=== PATIENT | female | born 1950 | race Caucasian/White ===

== ENCOUNTER 2019-03-18 13:58 | Emergency (ER) | payer MEDICARE ==
[2019-03-18] MEDS ORDERED: Clindamycin/D5W 600 mg/50 ml Premix Bag ONE (15:16)
[2019-03-18 15:49] LABS: Mean Corpuscular HGB CONC 34.2 g/dL (32.0-36.0); Mean Platelet Volume 6.8 fL (7.4-10.4); Platelet Count 334 thou/uL (130-400); Red Blood Cell (RBC) Count 3.89 mill/uL (4.20-5.40); White Blood Cell (WBC) Count 10.6 thou/uL (4.8-10.8)
--- NOTE | 2019-03-18 15:54 | RAD ---
EXAM: Right tibia-fibula: 2 views INDICATIONS: Right lower extremity pain COMPARISON: None. FINDINGS: No evidence of fracture. No osseous abnormality. IMPRESSION: No acute finding
[2019-03-18 15:56] LABS: #Eosinphils 0.2 thou/uL (0.0-0.7); #Lymphocytes 2.5 thou/uL (1.20-3.40); #Monocytes 0.6 thou/uL (0.11-0.59); #Neutrophils 7.3 thou/uL (1.40-6.50); %Basophils 0.4 % (0.0-1.0); %Eosinophils 1.9 % (0.0-10.0); %Lymphocytes 23.4 % (21.0-51.0); %Monocytes 5.5 % (0.0-10.0); %Neutrophils 68.8 % (42.0-75.0); MDiff Complete? YES; Macrocytosis SLIGHT = 6-15 cells (100X) (0-5/hpf); Platelet Morphology Comment Appears Adequate
[2019-03-18 15:58] LABS: ALT (SGPT) 22 U/L (8-55); AST (SGOT) 18 U/L (5-34); Albumin 4.3 g/dL (3.4-4.8); Alkaline Phosphatase 95 U/L (40-110); Anion Gap 17 mmol/L (10-20); BUN (Urea Nitrogen) 5 mg/dL (9.8-20.1); Bilirubin, Total 0.2 mg/dL (0.2-1.2); Calc. Creatinine Clearance 0 mL/min (70-130); Calcium 9.3 mg/dL (7.8-10.44); Carbon Dioxide 24 mmol/L (23-31); Chloride 105 mmol/L (98-107); Estimated GFR-MDRD Greater than 90; Globulin 2.6 g/dL (2.4-3.5); Glucose 91 mg/dL (80-115); Potassium 3.8 mmol/L (3.5-5.1); Protein, Total 6.9 g/dL (6.0-8.3); Sodium 142 mmol/L (136-145)
== END 2019-03-18 16:28 | disposition home or self-care (01) ==
LOC: ERS 13:58
DX: L03.115 Cellulitis of right lower limb (principal); I10 Essential (primary) hypertension; J44.9 Chronic obstructive pulmonary disease, unspecified; Z87.891 Personal history of nicotine dependence; Z85.038 Personal history of other malignant neoplasm of large intestine; Z79.899 Other long term (current) drug therapy; Z79.51 Long term (current) use of inhaled steroids
CPT/HCPCS: 80053; 85025; 87040; 96374; J3490

== ENCOUNTER 2019-04-01 09:42 | Inpatient (IN) | payer MEDICARE ==
[2019-04-01 10:14] LABS: #Basophils 0.1 thou/uL (0.0-0.2); #Eosinphils 0.1 thou/uL (0.0-0.7); #Lymphocytes 2.1 thou/uL (1.20-3.40); #Monocytes 0.8 thou/uL (0.11-0.59); %Basophils 0.5 % (0.0-1.0); %Eosinophils 0.8 % (0.0-10.0); %Lymphocytes 16.2 % (21.0-51.0); %Neutrophils 76.5 % (42.0-75.0); Hemoglobin 15.1 g/dL (12.0-16.0); Mean Corpuscular Hemoglobin 35.5 pg (27.0-31.0); Mean Platelet Volume 7.6 fL (7.4-10.4); Platelet Count 334 thou/uL (130-400); RBC Distribution Width 13.2 % (11.5-14.5); Red Blood Cell (RBC) Count 4.26 mill/uL (4.20-5.40); White Blood Cell (WBC) Count 13.1 thou/uL (4.8-10.8)
[2019-04-01 10:33] LABS: ALT (SGPT) 31 U/L (8-55); AST (SGOT) 34 U/L (5-34); Albumin 4.6 g/dL (3.4-4.8); Alkaline Phosphatase 106 U/L (40-110); Anion Gap 14 mmol/L (10-20); BUN (Urea Nitrogen) 7 mg/dL (9.8-20.1); Bilirubin, Total 0.4 mg/dL (0.2-1.2); Calc. Creatinine Clearance 0 mL/min (70-130); Calcium 10.1 mg/dL (7.8-10.44); Carbon Dioxide 27 mmol/L (23-31); Chloride 103 mmol/L (98-107); Estimated GFR-MDRD 82; Globulin 3.3 g/dL (2.4-3.5); Glucose 130 mg/dL (80-115); Potassium 4.4 mmol/L (3.5-5.1); Protein, Total 7.9 g/dL (6.0-8.3); Sodium 140 mmol/L (136-145)
--- NOTE | 2019-04-01 10:54 | ULT ---
EXAM: Right lower extremity venous ultrasound HISTORY: Right lower extremity pain and edema COMPARISON: None TECHNIQUE: Multiplanar grayscale and color Doppler images were obtained in a right lower extremity ve nous ultrasound. Spectral analysis of the Doppler waveforms were performed. FINDINGS: The common femoral vein, profunda femoral vein, superficial femoral vein, and popliteal vei n are normal in appearance without visible thrombus. These vessels demonstrate normal compression, flow, and augmentation. The posterior tibial vein and greater saphenous vein are patent without evidence of thrombus. IMPRESSION: No evidence of DVT.
--- NOTE | 2019-04-01 11:10 | RAD ---
EXAM: 2 views of the right tibia/fibula HISTORY: Leg pain COMPARISON: 03/18/2019 FINDINGS: There is no evidence of acute fracture or dislocation. There is an abnormal appearance of t he trabecular pattern in the proximal fibular diaphysis. There is questionable periosteal thickening in this region. No soft tissue swelling is seen. No degenerative changes are seen in the k nee or ankle. IMPRESSION: Questionable osseous lesion within the proximal fibula. An MRI of this location without a nd with contrast is recommended for further evaluation.
[2019-04-01 14:04] LABS: Lactic Acid 0.8 mmol/L (0.5-2.2)
[2019-04-01] MEDS ORDERED: Acetaminophen 325 MG TAB PO PRN (14:24)
[2019-04-01] MEDS ORDERED: Ondansetron ODT 4 MG TAB PO PRN (14:24)
[2019-04-01] MEDS ORDERED: Ondansetron PF 4 MG/2 ML Vial IVP PRN (14:24)
--- NOTE | 2019-04-01 14:50 | HP ---
PRIMARY CARE PHYSICIAN: Ora Simon MD CHIEF COMPLAINT: Right leg pain. HISTORY OF PRESENT ILLNESS: Ms. Rosales is a 68-year-old female with a past medical history of colon cancer, hypertension, hyperlipidemia, and COPD, who had presented to the ED earlier today due to right lower leg cellulitis. She states that over the weekend, she had scraped her bottom right leg on her machine helper, which she states had became painful, red, and swollen. Therefore, she was seen at a local urgent care and was treated for cellulitis and started on Bactrim. She states that the cut had healed up, however, the area of redness and swelling worsened. Therefore, she was seen in this ED on 03/20/2019, she was treated with IV clindamycin and later sent home with oral clindamycin. She states that the redness continued to worsen and track up the leg. Therefore, she wanted to be re-seen today. Her white count was noted to be elevated at 13.1 and lactic acid at 2.6, she underwent a lower extremity Doppler, which was negative for DVT at this time; however, a tibia and fibula, right leg, two-view, was ordered and showed questionable osseous lesion noted at the proximal fibula and an MRI was actually recommended. Therefore, she was treated with IV fluids and IV vancomycin, and an MRI of the right lower extremity was ordered and currently pending at this time. REVIEW OF SYSTEMS: All other systems reviewed and found to be negative unless mentioned in the HPI. PAST MEDICAL HISTORY: Hypertension, hyperlipidemia, previous history of colon cancer, and chronic obstructive pulmonary disease. PAST SURGICAL HISTORY: Abdominal surgery for colon cancer. PSYCHIATRIC HISTORY: None. SOCIAL HISTORY: The patient drinks roughly 1 to 2 drinks daily, and she states she is a former tobacco smoker, and she denies any other illicit drug use. KNOWN ALLERGIES: No known drug allergies. CURRENT HOME MEDICATIONS: 1. Breo 25 mcg inhalation once daily. 2. ProAir HFA inhaler one inhalation as needed for shortness of breath. 3. Levothyroxine 100 mcg oral daily. 4. Amlodipine 10 mg oral daily. 5. Simvastatin 20 mg oral once daily. 6. Montelukast 10 mg oral once daily. PHYSICAL EXAMINATION: VITAL SIGNS: BP 128/80, pulse 80, respirations 18, temp 99.2, and O2 saturation 99% on room air. GENERAL: The patient is awake, alert, and oriented x3. She is currently lying comfortably in bed and in no acute distress. HEENT: Atraumatic and normocephalic. Pupils are round and reactive to light. Extraocular muscles intact. Moist mucous membranes noted. NECK: Soft and supple. Trachea midline. CARDIOVASCULAR: Positive S1 and S2. Regular rate and rhythm. No murmur auscultated. RESPIRATORY: Clear to auscultation bilaterally. No wheezes, rales, or rhonchi. ABDOMEN: Soft and nontender. Bowel sounds present. MUSCULOSKELETAL: Moves all extremities equal. Pedal and radial pulses 2+ bilaterally. The patient does have tenderness, redness, and erythema along with a small area of induration noted on the right lower extremity, which is mildly tender to palpation with no fluctuation noted. NEUROLOGIC: Cranial nerves 2 through 12 grossly intact. No focal deficits noted. Speech intact and normal. Gait not assessed. SKIN: Warm, dry, and intact. Skin changes noted above. PSYCHIATRIC: Good mood and affect. LABORATORY DATA: WBC 13.1, RBC 4.26, hemoglobin 15.1, and platelets 334. Sodium 140, potassium 4.4, anion gap 14, BUN 7, creatinine 0.71, estimated GFR 82, glucose 130. Lactic acid 2.6, improved to 0.8. DIAGNOSTIC IMAGING: Ultrasound venous Doppler was negative for DVT. Tibia-fibula, right, two-view x-ray, revealed questionable osseous lesion within the proximal fibula and an MRI of this location with and without contrast is recommended. ASSESSMENT AND PLAN: 1. Recurrent cellulitis of the right lower extremity, which she has failed outpatient therapy including Bactrim and clindamycin, blood cultures are obtained and she will be treated with IV vancomycin. There was a questionable osseous lesion at the proximal fibula and an MRI with and without contrast is ordered for further evaluation. 2. History of hypertension, currently stable at this time. Monitor blood pressure and other vital signs closely, and restart home regimen. 3. Hypothyroidism. Continue home Synthroid. 4. History of chronic obstructive pulmonary disease, currently stable at this time. Continue home regimen. 5. Hyperlipidemia. Continue home statin. 6. Deep venous thrombosis and gastrointestinal prophylaxis. 7. Code status, full code. 8. Surrogate decision maker is her , Bennett. DISPOSITION: Pending further workup, clinical findings, and patient's progress. Job ID: [id number]
--- NOTE | 2019-04-01 16:21 | MRI ---
RIGHT LOWER EXTREMITY MRI WITH AND WITHOUT IV CONTRAST: 04/01/19 HISTORY: Osseous lesion found on x-ray, injury with pain. Follow-up. There is some focal subcutaneous edema primarily laterally and posteriorly along the lower leg. There is some subtle edematous changes within the lateral aspect of the lateral gastrocnemius muscle poste rior and lateral to the proximal fibula diaphysis. This could represent some focal soft tissue contus ion or injury. There is no evidence for abnormal marrow signal within the fibula. No evidence for a b one lesion. IMPRESSION: No evidence for a fibula bone lesion. Focal subcutaneous edema and fat stranding laterally at the level of the lower leg primarily overlyin g the lateral aspect of the fibula. Small focus of intramuscular edema or contusion at the level of the proximal fibular diaphysis which could well be related to the history of recent injury or possibly represents some mild muscle strain. POS: TPC
[2019-04-01 17:39] VITALS: BMI 25.6
[2019-04-01] MEDS ORDERED: Atorvastatin Calcium 10 MG TAB PO SCH (21:00)
[2019-04-01] MEDS ORDERED: Montelukast Sodium 10 mg Tablet PO SCH (21:00)
[2019-04-02 05:49] LABS: #Basophils 0.1 thou/uL (0.0-0.2); #Eosinphils 0.1 thou/uL (0.0-0.7); #Lymphocytes 1.5 thou/uL (1.20-3.40); #Monocytes 0.6 thou/uL (0.11-0.59); #Neutrophils 6.7 thou/uL (1.40-6.50); %Basophils 0.6 % (0.0-1.0); %Eosinophils 1.5 % (0.0-10.0); %Lymphocytes 16.2 % (21.0-51.0); %Monocytes 6.9 % (0.0-10.0); %Neutrophils 74.8 % (42.0-75.0); Mean Corpuscular HGB CONC 33.4 g/dL (32.0-36.0); Mean Corpuscular Hemoglobin 36.1 pg (27.0-31.0); Mean Platelet Volume 7.1 fL (7.4-10.4); Platelet Count 293 thou/uL (130-400); RBC Distribution Width 13.2 % (11.5-14.5); Red Blood Cell (RBC) Count 3.87 mill/uL (4.20-5.40)
[2019-04-02 06:10] LABS: Anion Gap 15 mmol/L (10-20); BUN (Urea Nitrogen) 5 mg/dL (9.8-20.1); Calc. Creatinine Clearance 102 mL/min (70-130); Calcium 9.3 mg/dL (7.8-10.44); Carbon Dioxide 23 mmol/L (23-31); Chloride 107 mmol/L (98-107); Estimated GFR-MDRD Greater than 90; Glucose 95 mg/dL (80-115); Potassium 3.8 mmol/L (3.5-5.1); Sodium 141 mmol/L (136-145)
[2019-04-02] MEDS ORDERED: Amlodipine 10 MG TAB PO SCH (09:00)
[2019-04-02] MEDS ORDERED: Enoxaparin Sodium 40 MG/0.4 ML SYRINGE SC SCH (09:00)
[2019-04-02] MEDS ORDERED: Prevnar 13-Val Conj/PF 0.5 ML SYRINGE IM ONE (09:00)
[2019-04-02] MEDS ORDERED: FLU VACC TS2019-20(65YR UP)/PF 180 MCG/0.5 ML SYRINGE IM ONE (09:00)
[2019-04-02] MEDS ORDERED: Vancomycin HCl 1.25 GM in Sodium Chloride 0.9% 250 ML 250 ML IVPB SCH (10:00)
[2019-04-02 11:21] VITALS: BP 130/76; TEMP 98.8
--- NOTE | 2019-04-02 18:21 | DIS ---
DATE OF ADMISSION: 04/01/2019 DATE OF DISCHARGE: 04/02/2019 DISCHARGE DISPOSITION: Home. PRIMARY DISCHARGE DIAGNOSIS: Right lower extremity cellulitis, which is recurrent and is currently resolving. SECONDARY DISCHARGE DIAGNOSES: Hypertension, dyslipidemia, hypothyroidism, history of chronic obstructive pulmonary disease, history of colon cancer. PROCEDURES DONE DURING HOSPITALIZATION: Right lower extremity ultrasound venous Doppler done showed no evidence of DVT. Right lower extremity MRI showed no evidence of fibular bone lesion, which was earlier seen on plain film in the proximal fibular area, there was focal subcutaneous edema and fat stranding laterally at the level of the lower leg, primarily overlying the lateral aspect of the fibula. Small focus of intramuscular edema/contusion at the level of the proximal fibular diaphysis, which could be related to recent injury or possibly represent some mild muscle strain. Two-view right tibia and fibula x-ray showed osseous lesion within the proximal fibula, which was negative on the MRI. No acute fracture or dislocation was seen. LABORATORY DATA: White count of 13 on admission, discharge numbers of 9, H and H 14 and 41, platelet count 293, MCV is 108, BUN 5, creatinine 0.5. DISCHARGE MEDICATIONS: 1. Keflex 500 mg p.o. three times daily for a total of 10 days. 2. Simvastatin 20 mg p.o. at bedtime. 3. Singulair 10 mg p.o. at bedtime. 4. Synthroid 100 mcg p.o. daily. 5. Breo Ellipta inhaler daily. 6. Vitamin D3 of 2000 units p.o. daily. 7. Norvasc 10 mg p.o. daily. ALLERGIES: NO KNOWN DRUG ALLERGIES. DISCHARGE PLAN: The patient to follow up with her primary care physician, Dr. Ese Reed in 1 week. BRIEF COURSE DURING HOSPITALIZATION: The patient initially came in with complaints of right lower extremity pain, swelling and redness. She had sustained injury with her bpm analyst approximately two to three weeks back. She had finished a course of Bactrim for 10 days and clindamycin for 10 days prior to arrival here. The patient was on IV antibiotics. Her right lower extremity erythema and edema have almost resolved at present. In view of 2 prior courses of antibiotics, an MRI of the right lower extremity was obtained, which did not reveal any pyomyositis or abscess. As the patient got dramatically better, she is wanting to go home today. She has been placed on Keflex 500 mg three times daily to be continued for 10 days. She is otherwise hemodynamically stable and ambulating in the hallway. She will follow up with her primary care physician in 1 week. She is advised to come to the emergency room if her legs were to flare up for IV antibiotics and to complete a full course with likely PICC line if this were to recur. Please note, I have seen and examined the patient on the day of discharge. Job ID: [id number] MTDD
--- NOTE | 2019-04-03 07:36 | PQF ---
MATEO SHAVER VINAYA KUMAR MD [id number] [id number] CLINICAL DOCUMENTATION CLARIFICATION FORM: POST DISCHARGE Addendum to original discharge summary date: ____ Late entry note date: __ DATE: 04-03-2019 ATTN:Denisha Miller Please exercise your independent, professional judgment in responding to the clarification form. Clinical indicators are provided on the bottom of this form for your review Can you please specify whether sepsis is ruled in or ruled out during this encounter? Please check appropriate box(s) to clarify if the following diagnosis has been ruled in or ruled out: Sepsis [ x] Ruled in diagnosis [ ] Continue to treat [x ] Resolved [ ] Ruled out diagnosis [ ] Cannot rule out diagnosis [ ] Other diagnosis please specify: [ ] Unable to determine For continuity of documentation, please document condition throughout progress notes and discharge summary. Thank You. CLINICAL INDICATORS: ED 04/01 pg8 Primary Diagnosis: RLE Cellulitis, Additional: Sepsis HP 10/[address] Woodward area of swelling and redness continued HP 10/[address] Woodward WBC to be elevated at 13.1 and lactic acid 2.[address] Hearn Right lower extermity cellulits which is recurrent Vital signs ED pulse= 115, 89, 90 RISK FACTOR: HP 10/[address] Woodward-HTN HP 10/[address] Woodward-hyperlipidemia HP 10/[address] Woodward-COPD HP 10/[address] Woodward-RLE Cellulitis HP 10/[address] Woodward- Former tobacco user TREATMENTS: Imaging- Tibia/ Fibula Xray Imaging- Vascular ultrasound MAR 04/01 Vancomycin Hcl (This form is maintained as a part of the permanent medical record) 2014 [employer]. All Rights Reserved Ana [email or web address] [not provided] MTDD
== END 2019-04-02 13:45 | disposition home or self-care (01) | DRG 872 ==
LOC: ERS 09:42 → T4-B 17:28
PROVIDERS: ADMIT Internal Medicine; ATTEND Internal Medicine
PROC: 3E02340 Introduction of Influenza Vaccine into Muscle, Percutaneous Approach (ICD-10-PCS; principal; 2019-04-02)
PROC: 3E0234Z Introduction of Serum, Toxoid and Vaccine into Muscle, Percutaneous Approach (ICD-10-PCS; 2019-04-02)
DX: A41.9 Sepsis, unspecified organism (principal); L03.115 Cellulitis of right lower limb; I10 Essential (primary) hypertension; E78.5 Hyperlipidemia, unspecified; J44.9 Chronic obstructive pulmonary disease, unspecified; E03.9 Hypothyroidism, unspecified; Z87.891 Personal history of nicotine dependence; Z85.038 Personal history of other malignant neoplasm of large intestine; Z79.890 Hormone replacement therapy; Z23 Encounter for immunization
CPT/HCPCS: 36415; 80048; 80053; 83605; 85025; 87040; 96365; J1650; J3370; J7050

== ENCOUNTER 2020-06-27 16:45 | Emergency (ER) | payer MEDICARE, OTHER ==
[2020-06-27] MEDS ORDERED: Triple Antibiotic Oint 1 GM Packet ONE (17:38)
[2020-06-27] MEDS ORDERED: Boostrix 0.5 ML (Tdap) VIAL ONE (17:38)
[2020-06-27] MEDS ORDERED: Lidocaine 4% Cream 5 GM TUBE w/ Tegaderm ONE (17:56)
--- NOTE | 2020-06-27 17:59 | RAD ---
RIGHT TIBIA/FIBULA TWO VIEWS: History: Fall, laceration to the leg. FINDINGS: There is a nondisplaced acute appearing proximal fibular neck fracture. There is also some bony callu s changes related to an older fibular fracture with some healing. No associated tibial fracture is se en. IMPRESSION: Nondisplaced fibular neck fracture. POS: HERNAN
[2020-06-27] MEDS ORDERED: HYDROcodone/Acetaminophen 5/325 mg Tablet ONE (18:05)
[2020-06-27] MEDS ORDERED: Lidocaine 1% PF 5 ML VIAL ONE (18:05)
== END 2020-06-27 18:10 | disposition home or self-care (01) ==
LOC: ERS 16:45
DX: S82.831A Other fracture of upper and lower end of right fibula, initial encounter for closed fracture (principal); Z23 Encounter for immunization; I10 Essential (primary) hypertension; J44.9 Chronic obstructive pulmonary disease, unspecified; Z85.038 Personal history of other malignant neoplasm of large intestine; Z87.891 Personal history of nicotine dependence; W01.198A Fall on same level from slipping, tripping and stumbling with subsequent striking against other object, initial encounter
CPT/HCPCS: 12005; 90471; 90715

== ENCOUNTER 2020-08-10 08:12 | Outpatient (CLI) | payer MEDICARE, OTHER ==
--- NOTE | 2020-08-10 08:47 | MMO ---
Bilateral MAMMO Bilat Screen [facility]. CLINICAL HISTORY: Patient is 69 years old and is seen for screening. The patient has no family history of breast cancer. The patient has no personal history of cancer. The patient has a history of left Ultrasound Guided Core Biopsy in November,. VIEWS: The views performed were: bilateral craniocaudal with tomosynthesis and bilateral mediolateral oblique with tomosynthesis. FILMS COMPARED: The present examination has been compared to prior imaging studies performed at [facility] on 02/06/2003, 09/15/2005, 12/08/2011 and 09/14/2016. This study has been interpreted with the assistance of computer-aided detection. MAMMOGRAM FINDINGS: There are scattered fibroglandular densities. There is a stable biopsy clip seen in the left breast. There are no suspicious masses, suspicious calcifications, or new areas of architectural distortion. IMPRESSION: THERE IS NO MAMMOGRAPHIC EVIDENCE OF MALIGNANCY. A ROUTINE FOLLOW-UP MAMMOGRAM IN 1 YEAR IS RECOMMENDED. THE RESULTS OF THIS EXAM WERE SENT TO THE PATIENT. ACR BI-RADS Category 2 - Benign finding MAMMOGRAPHY NOTE: 1. A negative mammogram report should not delay a biopsy if a dominant of clinically suspicious mass is present. 2. Approximately 10% to 15% of breast cancers are not detected by mammography. 3. Adenosis and dense breasts may obscure an underlying neoplasm. Reported by: TAMIKO SMITH MD Electonically Signed: [id number]
== END 2020-08-10 08:13 | disposition home or self-care (01) ==
LOC: BICMAMMO 08:12
PROVIDERS: ATTEND Family Medicine
DX: Z12.31 Encounter for screening mammogram for malignant neoplasm of breast (principal)
CPT/HCPCS: 77063; 77067

== ENCOUNTER 2024-05-02 08:12 | Outpatient (CLI) | payer MEDICARE, OTHER | END 2024-05-02 08:13 | disposition home or self-care (01) | LOC: RAD 08:12 | PROVIDERS: ATTEND Internal Medicine | DX: R06.00 Dyspnea, unspecified (principal) | CPT/HCPCS: 71046 ==